=== PATIENT | female | born 1980 | race Caucasian/White ===

== ENCOUNTER 2020-07-04 22:10 | Inpatient (IN) | payer BC ==
[~2020-07-04] VITALS: Ht 157.5 cm; Wt 69.0 kg
[2020-07-04 23:16] LABS: BASOPHILS # (AUTO) 0.01 x10^3/uL (0-0.1); BASOPHILS % (AUTO) 0 % (0-1); EOSINOPHILS # (AUTO) 0.03 x10^3/uL (0-0.4); EOSINOPHILS % (AUTO) 0 % (1-7); LYMPHOCYTES # (AUTO) 1.14 x10^3/uL (1-3.4); LYMPHOCYTES % (AUTO) 9 % (22-44); MD NO; MEAN CORPUSCULAR HEMOGLOBIN 29.6 pg (27.0-34.8); MEAN CORPUSCULAR HGB CONC 32.9 g/dL (32.4-35.8); MEAN PLATELET VOLUME 8.2 fL (7.4-10.4); MONOCYTES # (AUTO) 0.21 x10^3/uL (0.2-0.8); MONOCYTES % (AUTO) 2 % (2-9); NEUTROPHILS # (AUTO) 11.57 x10^3/uL (1.8-6.8); NEUTROPHILS % (AUTO) 89 % (42-75); PLATELET COUNT 210 x10^3/uL (130-400); RED BLOOD COUNT 4.31 x10^6/uL (3.82-5.3); RED CELL DISTRIBUTION WIDTH 13.1 % (9.6-15.2)
[2020-07-04 23:52] LABS: ALANINE AMINOTRANSFERASE 19 U/L (12-78); ALBUMIN 3.1 g/dL (3.4-5.0); ANION GAP 9 mmol/L (5-15); CALCIUM 8.6 mg/dL (8.5-10.1); CHLORIDE 112 mmol/L (98-107); CREATININE 0.71 mg/dL (0.55-1.02)
[2020-07-05 00:03] LABS: ALKALINE PHOSPHATASE 72 U/L (45-117); BILIRUBIN,TOTAL 0.2 mg/dL (0.2-1.0)
[2020-07-05] MEDS ORDERED: INSULIN LISPRO 100 UNIT/ML, 3ML VIAL SQ ONE (02:30)
[2020-07-05] MEDS: LEVOTHYROXINE 50 MCG TABLET PO SCH (03:16)
[2020-07-05] MEDS: INSULIN LISPRO 100 UNITS/ML, PEN SQ-INSULIN SCH ×3 (07:30→09:38)
[2020-07-05] MEDS ORDERED: MAGNESIUM SULFATE PMX 4GM/100M 100 ML ONE (07:56)
[2020-07-05] MEDS ORDERED: MAGNESIUM SULF. PMX 20GM/500ML 500 ML IV ONE ×2 (07:56→19:05)
[2020-07-05] MEDS ORDERED: MAGNESIUM SULFATE PMX 2GM/50ML 50 ML ONE (07:57)
[2020-07-05] MEDS ORDERED: VANCOMYCIN 1,400 MG in SODIUM CHLORIDE 0.9% 250 ML IV SCH ×2 (08:00→20:00)
[2020-07-05] MEDS: INSULIN NPH HUMAN 100 UNIT/ML, 3ML VIAL SQ-INSULIN SCH (08:09)
[2020-07-05] MEDS: LACTATED RINGERS 1,000 ML IV SCH (08:23)
[2020-07-05] MEDS ORDERED: MAGNESIUM SULFATE PMX 4GM/100M 100 ML IVPB ONE (08:30)
[2020-07-05] MEDS ORDERED: INSULIN LISPRO 100 UNIT/ML, 3ML VIAL SQ-INSULIN SCH (08:30)
[2020-07-05] MEDS ORDERED: MAGNESIUM SULFATE PMX 2GM/50ML 50 ML IVPB ONE (08:30)
[2020-07-05] MEDS ORDERED: PRENATAL VIT/IRON/FA 1 EACH TABLET PO SCH (09:00)
[2020-07-05] MEDS: MAGNESIUM SULF. PMX 20GM/500ML 500 ML IV SCH ×2 (09:01→19:07)
[2020-07-05] MEDS ORDERED: ACYCLOVIR 400 MG TABLET ONE ×3 (09:41→22:11)
[2020-07-05] MEDS: ACYCLOVIR 400 MG TABLET PO SCH ×3 (09:42→22:12)
[2020-07-05] MEDS: LACTOBACILLUS 1GM/ PACKET PO SCH ×3 (09:42→21:00)
[2020-07-05] MEDS ORDERED: INSULIN LISPRO 100 UNITS/ML, PEN SQ-INSULIN ONE (13:00)
[2020-07-05] MEDS ORDERED: LEVO50TA PO (17:00)
[2020-07-05] MEDS ORDERED: PREN1TAB28 PO (17:00)
[2020-07-05] MEDS ORDERED: INSULIN LISPRO 100 UNITS/ML, PEN SQ-INSULIN SCH (18:00)
[2020-07-05] MEDS: VANCOMYCIN 1,400 MG in SODIUM CHLORIDE 0.9% 250 ML IV SCH (19:35)
[2020-07-05] MEDS ORDERED: BETAMETHASONE 6 MG/ML, 5ML IM ONE (19:48)
[2020-07-05] MEDS ORDERED: BETAMETHASONE 6 MG/ML, 5ML IM SCH (20:00)
[2020-07-05] MEDS ORDERED: INSULIN NPH HUMAN 100 UNIT/ML, 3ML VIAL SQ-INSULIN ONE (21:00)
[2020-07-05] MEDS ORDERED: ACETAMINOPHEN 325 MG TABLET ONE (21:09)
[2020-07-05] MEDS ORDERED: DOCUSATE 100 MG CAPSULE ONE (22:13)
[2020-07-05] MEDS: DOCUSATE 100 MG CAPSULE PO PRN (22:14)
[2020-07-06] MEDS: LEVOTHYROXINE 50 MCG TABLET PO SCH (02:06)
[2020-07-06] MEDS ORDERED: MAGNESIUM SULF. PMX 20GM/500ML 500 ML IV ONE (04:26)
[2020-07-06] MEDS: MAGNESIUM SULF. PMX 20GM/500ML 500 ML IV SCH (04:31)
[2020-07-06] MEDS ORDERED: INSULIN NPH HUMAN 100 UNIT/ML, 3ML VIAL SQ-INSULIN ONE ×2 (07:30→16:30)
[2020-07-06] MEDS: INSULIN LISPRO 100 UNITS/ML, PEN SQ-INSULIN SCH ×3 (07:30→09:17)
[2020-07-06] MEDS ORDERED: INSULIN LISPRO 100 UNITS/ML, PEN SQ-INSULIN SCH (07:30)
[2020-07-06] MEDS: INSULIN NPH HUMAN 100 UNIT/ML, 3ML VIAL SQ-INSULIN SCH (07:30)
[2020-07-06] MEDS: LACTATED RINGERS 1,000 ML IV SCH ×2 (07:57→16:30)
[2020-07-06] MEDS: LACTOBACILLUS 1GM/ PACKET PO SCH ×3 (07:57→21:02)
[2020-07-06] MEDS: VANCOMYCIN 1,400 MG in SODIUM CHLORIDE 0.9% 250 ML IV SCH ×2 (08:07→19:56)
[2020-07-06] MEDS ORDERED: PRENATAL VIT/IRON/FA 1 EACH TABLET HOMEMEDPO SCH (09:00)
[2020-07-06] MEDS ORDERED: ACYCLOVIR 400 MG TABLET ONE ×3 (09:11→20:52)
[2020-07-06] MEDS: ACYCLOVIR 400 MG TABLET PO SCH ×3 (09:15→21:02)
[2020-07-06] MEDS: PRENATAL VIT/IRON/FA 1 EACH TABLET HOMEMEDPO SCH ×2 (09:30→21:00)
[2020-07-06] MEDS ORDERED: DOCUSATE 100 MG CAPSULE ONE (11:46)
[2020-07-06] MEDS: DOCUSATE 100 MG CAPSULE PO PRN ×2 (11:49→21:02)
[2020-07-06] MEDS ORDERED: INSULIN LISPRO 100 UNITS/ML, PEN SQ-INSULIN ONE (16:30)
[2020-07-06 19:50] VITALS: BP 101/55
[2020-07-07] VITALS (7 sets, daily range): BP systolic 104–108; BP diastolic 54–60
[2020-07-07] MEDS: LEVOTHYROXINE 50 MCG TABLET PO SCH (02:34)
[2020-07-07] MEDS: INSULIN NPH HUMAN 100 UNIT/ML, 3ML VIAL SQ-INSULIN SCH (07:30)
[2020-07-07] MEDS ORDERED: DOCUSATE 100 MG CAPSULE ONE (08:30)
[2020-07-07] MEDS ORDERED: ACYCLOVIR 400 MG TABLET ONE ×2 (08:31→21:09)
[2020-07-07] MEDS: LACTOBACILLUS 1GM/ PACKET PO SCH ×3 (08:38→21:12)
[2020-07-07] MEDS: ACYCLOVIR 400 MG TABLET PO SCH ×3 (08:38→21:12)
[2020-07-07] MEDS: DOCUSATE 100 MG CAPSULE PO PRN (08:39)
[2020-07-07] MEDS: INSULIN LISPRO 100 UNITS/ML, PEN SQ-INSULIN SCH ×3 (08:44→16:00)
[2020-07-07] MEDS: PRENATAL VIT/IRON/FA 1 EACH TABLET HOMEMEDPO SCH ×2 (08:53→21:00)
[2020-07-07] MEDS: LACTATED RINGERS 1,000 ML IV SCH (12:30)
[2020-07-08 02:24] VITALS: BP 99/52
[2020-07-08] MEDS: LEVOTHYROXINE 50 MCG TABLET PO SCH (02:39)
[2020-07-08 07:00] VITALS: BP 120/62
[2020-07-08] MEDS: INSULIN LISPRO 100 UNITS/ML, PEN SQ-INSULIN SCH ×3 (07:00→16:00)
[2020-07-08] MEDS: INSULIN NPH HUMAN 100 UNIT/ML, 3ML VIAL SQ-INSULIN SCH (07:30)
[2020-07-08] MEDS ORDERED: ACYCLOVIR 400 MG TABLET ONE ×2 (07:55→20:32)
[2020-07-08] MEDS ORDERED: DOCUSATE 100 MG CAPSULE ONE (07:56)
[2020-07-08] MEDS: LACTOBACILLUS 1GM/ PACKET PO SCH ×3 (08:00→21:11)
[2020-07-08] MEDS: ACYCLOVIR 400 MG TABLET PO SCH ×3 (08:00→21:11)
[2020-07-08] MEDS: DOCUSATE 100 MG CAPSULE PO PRN (08:00)
[2020-07-08] MEDS: PRENATAL VIT/IRON/FA 1 EACH TABLET HOMEMEDPO SCH (09:00)
[2020-07-08 20:15] VITALS: BP 113/58
[2020-07-09] MEDS: LEVOTHYROXINE 50 MCG TABLET PO SCH (04:20)
[2020-07-09 06:43] LABS: BASOPHILS # (AUTO) 0.04 x10^3/uL (0-0.1); BASOPHILS % (AUTO) 0 % (0-1); EOSINOPHILS # (AUTO) 0.28 x10^3/uL (0-0.4); EOSINOPHILS % (AUTO) 2 % (1-7); LYMPHOCYTES # (AUTO) 2.16 x10^3/uL (1-3.4); LYMPHOCYTES % (AUTO) 16 % (22-44); MD NO; MEAN CORPUSCULAR HEMOGLOBIN 29.8 pg (27.0-34.8); MEAN CORPUSCULAR HGB CONC 33.1 g/dL (32.4-35.8); MEAN CORPUSCULAR VOLUME 90.1 fL (80-100); MONOCYTES # (AUTO) 1.04 x10^3/uL (0.2-0.8); MONOCYTES % (AUTO) 8 % (2-9); NEUTROPHILS % (AUTO) 74 % (42-75); PLATELET COUNT 254 x10^3/uL (130-400); RED CELL DISTRIBUTION WIDTH 13.5 % (9.6-15.2)
[2020-07-09] MEDS ORDERED: ACYCLOVIR 400 MG TABLET ONE ×2 (08:28→16:11)
[2020-07-09] MEDS ORDERED: PRENATAL VIT/IRON/FA 1 EACH TABLET ONE (08:28)
[2020-07-09] MEDS ORDERED: LACTOBACILLUS 1GM/ PACKET ONE ×2 (08:29→16:11)
[2020-07-09] MEDS ORDERED: DOCUSATE 100 MG CAPSULE ONE (08:29)
[2020-07-09] MEDS: DOCUSATE 100 MG CAPSULE PO PRN (09:09)
[2020-07-09] MEDS: LACTOBACILLUS 1GM/ PACKET PO SCH ×3 (09:09→21:03)
[2020-07-09] MEDS: ACYCLOVIR 400 MG TABLET PO SCH ×3 (09:09→21:03)
[2020-07-09] MEDS: PRENATAL VIT/IRON/FA 1 EACH TABLET HOMEMEDPO SCH ×2 (09:10→21:00)
[2020-07-09 09:19] VITALS: BP 124/63
[2020-07-09] MEDS ORDERED: ACETAMINOPHEN 325 MG TABLET ONE (09:57)
[2020-07-09] MEDS: ACETAMINOPHEN 325 MG TABLET PO PRN (10:01)
[2020-07-09] MEDS ORDERED: CALCIUM CARBONATE 500 MG TAB.CHEW PO PRN (15:00)
[2020-07-09] MEDS ORDERED: OMEPRAZOLE 20 MG CAPSULE.DR PO SCH (16:00)
[2020-07-09 19:42] VITALS: BP 106/60
[2020-07-10] MEDS: LEVOTHYROXINE 50 MCG TABLET PO SCH (01:37)
[2020-07-10] MEDS ORDERED: LACTOBACILLUS 1GM/ PACKET ONE (07:38)
[2020-07-10] MEDS ORDERED: DOCUSATE 100 MG CAPSULE ONE (07:38)
[2020-07-10] MEDS: PRENATAL VIT/IRON/FA 1 EACH TABLET HOMEMEDPO SCH ×3 (07:41→21:00)
[2020-07-10] MEDS: LACTOBACILLUS 1GM/ PACKET PO SCH ×3 (07:41→20:53)
[2020-07-10] MEDS: DOCUSATE 100 MG CAPSULE PO PRN (07:42)
[2020-07-10] MEDS ORDERED: INSULIN NPH HUMAN 100 UNIT/ML, 3ML VIAL SQ-INSULIN PRN (08:00)
[2020-07-10] MEDS ORDERED: INSULIN LISPRO 100 UNITS/ML, PEN SQ-INSULIN PRN (08:00)
[2020-07-10] MEDS ORDERED: ACYCLOVIR 400 MG TABLET ONE (08:32)
[2020-07-10] MEDS: ACYCLOVIR 400 MG TABLET PO SCH ×3 (08:36→20:54)
[2020-07-10 19:26] VITALS: BP 112/64
[2020-07-11] MEDS: LEVOTHYROXINE 50 MCG TABLET PO SCH (01:53)
[2020-07-11] MEDS ORDERED: LACTOBACILLUS 1GM/ PACKET ONE ×3 (07:17→20:03)
[2020-07-11] MEDS: LACTOBACILLUS 1GM/ PACKET PO SCH ×3 (07:29→20:06)
[2020-07-11] MEDS: PRENATAL VIT/IRON/FA 1 EACH TABLET HOMEMEDPO SCH ×2 (09:00→21:00)
[2020-07-11] MEDS: DOCUSATE 100 MG CAPSULE PO PRN (09:00)
[2020-07-11] MEDS ORDERED: INSULIN NPH HUMAN 100 UNIT/ML, 3ML VIAL SQ-INSULIN ONE ×2 (09:30→21:00)
[2020-07-11] MEDS ORDERED: ACYCLOVIR 400 MG TABLET ONE (19:46)
[2020-07-11] MEDS: ACYCLOVIR 400 MG TABLET PO SCH ×2 (19:51→21:00)
[2020-07-12] MEDS: LEVOTHYROXINE 50 MCG TABLET PO SCH (01:38)
[2020-07-12] MEDS ORDERED: DOCUSATE 100 MG CAPSULE ONE ×2 (07:41)
[2020-07-12] MEDS ORDERED: ACYCLOVIR 400 MG TABLET ONE ×3 (07:41→20:49)
[2020-07-12] MEDS ORDERED: LACTOBACILLUS 1GM/ PACKET ONE ×3 (07:41→20:49)
[2020-07-12] MEDS: ACYCLOVIR 400 MG TABLET PO SCH ×3 (09:23→22:00)
[2020-07-12] MEDS: DOCUSATE 100 MG CAPSULE PO PRN (09:23)
[2020-07-12] MEDS: LACTOBACILLUS 1GM/ PACKET PO SCH ×3 (09:23→22:00)
[2020-07-12] MEDS: PRENATAL VIT/IRON/FA 1 EACH TABLET HOMEMEDPO SCH ×2 (20:30→21:00)
[2020-07-12] MEDS ORDERED: INSULIN NPH HUMAN 100 UNIT/ML, 3ML VIAL SQ-INSULIN ONE (22:00)
[2020-07-13] MEDS: LEVOTHYROXINE 50 MCG TABLET PO SCH (02:16)
[2020-07-13] MEDS ORDERED: ACYCLOVIR 400 MG TABLET ONE ×2 (08:56→15:42)
[2020-07-13] MEDS ORDERED: LACTOBACILLUS 1GM/ PACKET ONE ×2 (08:56→13:03)
[2020-07-13] MEDS: ACYCLOVIR 400 MG TABLET PO SCH ×3 (08:58→20:30)
[2020-07-13] MEDS: LACTOBACILLUS 1GM/ PACKET PO SCH ×3 (08:58→20:30)
[2020-07-13] MEDS: PRENATAL VIT/IRON/FA 1 EACH TABLET HOMEMEDPO SCH ×2 (09:00→21:00)
[2020-07-13] MEDS ORDERED: ACETAMINOPHEN 325 MG TABLET ONE (13:07)
[2020-07-13] MEDS: ACETAMINOPHEN 325 MG TABLET PO PRN (13:09)
[2020-07-13] MEDS: DOCUSATE 100 MG CAPSULE PO PRN (20:30)
[2020-07-13] MEDS ORDERED: INSULIN NPH HUMAN 100 UNIT/ML, 3ML VIAL SQ-INSULIN ONE (21:00)
[2020-07-14] MEDS: LEVOTHYROXINE 50 MCG TABLET PO SCH (01:32)
[2020-07-14 07:00] VITALS: BP 107/65
[2020-07-14] MEDS: PRENATAL VIT/IRON/FA 1 EACH TABLET HOMEMEDPO SCH ×2 (09:00→21:00)
[2020-07-14] MEDS ORDERED: ACETAMINOPHEN 325 MG TABLET ONE (13:19)
[2020-07-14] MEDS ORDERED: DOCUSATE 100 MG CAPSULE ONE ×2 (13:20→20:56)
[2020-07-14] MEDS ORDERED: LACTOBACILLUS 1GM/ PACKET ONE ×3 (13:20→20:56)
[2020-07-14] MEDS ORDERED: ACYCLOVIR 400 MG TABLET ONE ×3 (13:20→20:56)
[2020-07-14] MEDS: ACYCLOVIR 400 MG TABLET PO SCH ×4 (13:22→22:16)
[2020-07-14] MEDS: DOCUSATE 100 MG CAPSULE PO PRN ×2 (13:22→22:16)
[2020-07-14] MEDS: ACETAMINOPHEN 325 MG TABLET PO PRN (13:22)
[2020-07-14 13:30] VITALS: BP 123/70
[2020-07-14] MEDS: LACTOBACILLUS 1GM/ PACKET PO SCH ×3 (16:00→21:00)
[2020-07-14] MEDS ORDERED: PRENATAL VIT/IRON/FA 1 EACH TABLET ONE (20:55)
[2020-07-14] MEDS: INSULIN NPH HUMAN 100 UNIT/ML, 3ML VIAL SQ-INSULIN PRN (22:19)
[2020-07-15] MEDS: LEVOTHYROXINE 50 MCG TABLET PO SCH (01:02)
[2020-07-15] MEDS ORDERED: ACYCLOVIR 400 MG TABLET ONE ×3 (07:24→20:54)
[2020-07-15] MEDS: ACYCLOVIR 400 MG TABLET PO SCH ×3 (07:32→21:00)
[2020-07-15] MEDS: LACTOBACILLUS 1GM/ PACKET PO SCH ×3 (07:33→20:57)
[2020-07-15] MEDS: PRENATAL VIT/IRON/FA 1 EACH TABLET HOMEMEDPO SCH ×2 (07:33→16:02)
[2020-07-15] MEDS ORDERED: DOCUSATE 100 MG CAPSULE ONE ×2 (11:28→20:53)
[2020-07-15] MEDS ORDERED: ACETAMINOPHEN 325 MG TABLET ONE ×3 (11:28→19:03)
[2020-07-15] MEDS: DOCUSATE 100 MG CAPSULE PO PRN ×2 (11:31→20:57)
[2020-07-15] MEDS: ACETAMINOPHEN 325 MG TABLET PO PRN ×2 (11:33→19:08)
[2020-07-15] MEDS ORDERED: LACTOBACILLUS 1GM/ PACKET ONE ×2 (16:00→20:53)
[2020-07-15] MEDS: INSULIN NPH HUMAN 100 UNIT/ML, 3ML VIAL SQ-INSULIN PRN (22:20)
[2020-07-16] MEDS: LEVOTHYROXINE 50 MCG TABLET PO SCH (01:18)
[2020-07-16] MEDS ORDERED: ACETAMINOPHEN 325 MG TABLET ONE ×2 (01:21→01:26)
[2020-07-16] MEDS: ACETAMINOPHEN 325 MG TABLET PO PRN (01:22)
[2020-07-16 07:40] VITALS: BP 108/61
[2020-07-16] MEDS ORDERED: LACTOBACILLUS 1GM/ PACKET ONE ×3 (12:04→21:04)
[2020-07-16] MEDS ORDERED: ACYCLOVIR 400 MG TABLET ONE ×3 (12:04→21:04)
[2020-07-16] MEDS ORDERED: DOCUSATE 100 MG CAPSULE ONE ×2 (12:04→21:04)
[2020-07-16] MEDS: DOCUSATE 100 MG CAPSULE PO PRN ×3 (12:10→21:34)
[2020-07-16] MEDS: LACTOBACILLUS 1GM/ PACKET PO SCH ×3 (12:10→21:34)
[2020-07-16] MEDS: ACYCLOVIR 400 MG TABLET PO SCH ×3 (12:11→21:34)
[2020-07-16] MEDS: PRENATAL VIT/IRON/FA 1 EACH TABLET HOMEMEDPO SCH ×2 (12:11→21:00)
[2020-07-16 19:55] VITALS: BP 110/64
[2020-07-16] MEDS: INSULIN NPH HUMAN 100 UNIT/ML, 3ML VIAL SQ-INSULIN PRN (22:29)
[2020-07-17] MEDS: LEVOTHYROXINE 50 MCG TABLET PO SCH (03:59)
[2020-07-17] MEDS ORDERED: ACYCLOVIR 400 MG TABLET ONE ×3 (08:37→19:31)
[2020-07-17] MEDS ORDERED: DOCUSATE 100 MG CAPSULE ONE ×2 (08:37→19:31)
[2020-07-17] MEDS ORDERED: LACTOBACILLUS 1GM/ PACKET ONE ×3 (08:37→19:31)
[2020-07-17] MEDS: PRENATAL VIT/IRON/FA 1 EACH TABLET HOMEMEDPO SCH ×2 (09:00→21:00)
[2020-07-17] MEDS: DOCUSATE 100 MG CAPSULE PO PRN ×2 (09:04→21:10)
[2020-07-17] MEDS: LACTOBACILLUS 1GM/ PACKET PO SCH ×3 (09:04→21:10)
[2020-07-17] MEDS: ACYCLOVIR 400 MG TABLET PO SCH ×3 (09:05→21:10)
[2020-07-17 10:47] VITALS: BP 119/68
[2020-07-17] MEDS: INSULIN LISPRO 100 UNITS/ML, PEN SQ-INSULIN SCH (17:46)
[2020-07-17 19:43] VITALS: BP 105/58
[2020-07-17] MEDS ORDERED: ACETAMINOPHEN 325 MG TABLET ONE (21:09)
[2020-07-17] MEDS: ACETAMINOPHEN 325 MG TABLET PO PRN (21:11)
[2020-07-17] MEDS: INSULIN NPH HUMAN 100 UNIT/ML, 3ML VIAL SQ-INSULIN PRN (21:58)
[2020-07-18] MEDS: LEVOTHYROXINE 50 MCG TABLET PO SCH (01:18)
[2020-07-18 08:00] VITALS: BP 108/65
[2020-07-18] MEDS ORDERED: ACYCLOVIR 400 MG TABLET ONE ×3 (08:05→21:12)
[2020-07-18] MEDS ORDERED: DOCUSATE 100 MG CAPSULE ONE ×2 (08:05→21:11)
[2020-07-18] MEDS ORDERED: LACTOBACILLUS 1GM/ PACKET ONE ×3 (08:05→21:12)
[2020-07-18] MEDS: LACTOBACILLUS 1GM/ PACKET PO SCH ×3 (08:10→21:14)
[2020-07-18] MEDS: DOCUSATE 100 MG CAPSULE PO PRN ×2 (08:10→21:14)
[2020-07-18] MEDS: ACYCLOVIR 400 MG TABLET PO SCH ×3 (08:10→21:14)
[2020-07-18] MEDS: PRENATAL VIT/IRON/FA 1 EACH TABLET HOMEMEDPO SCH ×2 (09:00→21:00)
[2020-07-18] MEDS: INSULIN LISPRO 100 UNITS/ML, PEN SQ-INSULIN SCH ×2 (18:00→18:13)
[2020-07-18 19:51] VITALS: BP 108/58
[2020-07-18] MEDS: INSULIN NPH HUMAN 100 UNIT/ML, 3ML VIAL SQ-INSULIN PRN (22:12)
[2020-07-19] MEDS: LEVOTHYROXINE 50 MCG TABLET PO SCH (01:54)
[2020-07-19] MEDS: PRENATAL VIT/IRON/FA 1 EACH TABLET HOMEMEDPO SCH ×2 (09:00→21:00)
[2020-07-19] MEDS ORDERED: DOCUSATE 100 MG CAPSULE ONE ×2 (09:18→20:39)
[2020-07-19] MEDS ORDERED: LACTOBACILLUS 1GM/ PACKET ONE ×3 (09:18→20:39)
[2020-07-19] MEDS ORDERED: ACYCLOVIR 400 MG TABLET ONE ×3 (09:18→20:39)
[2020-07-19] MEDS: DOCUSATE 100 MG CAPSULE PO PRN ×2 (09:23→20:43)
[2020-07-19] MEDS: ACYCLOVIR 400 MG TABLET PO SCH ×3 (09:24→20:43)
[2020-07-19] MEDS: LACTOBACILLUS 1GM/ PACKET PO SCH ×3 (09:24→20:43)
[2020-07-19] MEDS: INSULIN LISPRO 100 UNITS/ML, PEN SQ-INSULIN SCH (17:57)
[2020-07-19] MEDS: INSULIN NPH HUMAN 100 UNIT/ML, 3ML VIAL SQ-INSULIN PRN (22:02)
[2020-07-20] MEDS: LEVOTHYROXINE 50 MCG TABLET PO SCH (01:45)
[2020-07-20] MEDS ORDERED: DOCUSATE 100 MG CAPSULE ONE ×2 (08:53→20:25)
[2020-07-20] MEDS ORDERED: LACTOBACILLUS 1GM/ PACKET ONE ×3 (08:53→20:26)
[2020-07-20] MEDS ORDERED: ACYCLOVIR 400 MG TABLET ONE ×3 (08:53→20:26)
[2020-07-20] MEDS: LACTOBACILLUS 1GM/ PACKET PO SCH ×3 (08:56→20:32)
[2020-07-20] MEDS: ACYCLOVIR 400 MG TABLET PO SCH ×3 (08:57→20:32)
[2020-07-20] MEDS: DOCUSATE 100 MG CAPSULE PO PRN ×2 (08:57→20:32)
[2020-07-20] MEDS: PRENATAL VIT/IRON/FA 1 EACH TABLET HOMEMEDPO SCH ×2 (08:57→21:00)
[2020-07-20 09:00] VITALS: BP 103/57
[2020-07-20] MEDS: INSULIN LISPRO 100 UNITS/ML, PEN SQ-INSULIN SCH (18:00)
[2020-07-20 20:45] VITALS: BP 102/58
[2020-07-20] MEDS: INSULIN NPH HUMAN 100 UNIT/ML, 3ML VIAL SQ-INSULIN PRN (22:17)
[2020-07-21] MEDS: LEVOTHYROXINE 50 MCG TABLET PO SCH (02:28)
[2020-07-21 02:29] VITALS: BP 90/51
[2020-07-21] MEDS ORDERED: ACYCLOVIR 400 MG TABLET ONE ×3 (08:13→21:09)
[2020-07-21] MEDS ORDERED: LACTOBACILLUS 1GM/ PACKET ONE ×3 (08:14→21:08)
[2020-07-21] MEDS ORDERED: DOCUSATE 100 MG CAPSULE ONE ×2 (08:14→21:08)
[2020-07-21] MEDS: DOCUSATE 100 MG CAPSULE PO PRN ×2 (08:19→21:24)
[2020-07-21] MEDS: LACTOBACILLUS 1GM/ PACKET PO SCH ×3 (08:19→21:24)
[2020-07-21] MEDS: ACYCLOVIR 400 MG TABLET PO SCH ×3 (08:19→21:24)
[2020-07-21] MEDS: PRENATAL VIT/IRON/FA 1 EACH TABLET HOMEMEDPO SCH ×2 (08:26→21:00)
[2020-07-21 08:35] VITALS: BP 105/60
[2020-07-21] MEDS: INSULIN LISPRO 100 UNITS/ML, PEN SQ-INSULIN SCH (16:53)
[2020-07-21] MEDS ORDERED: ACETAMINOPHEN 325 MG TABLET ONE (18:55)
[2020-07-21] MEDS: ACETAMINOPHEN 325 MG TABLET PO PRN (18:59)
[2020-07-21 19:14] LABS: BASOPHILS # (AUTO) 0.08 x10^3/uL (0-0.1); BASOPHILS % (AUTO) 1 % (0-1); EOSINOPHILS # (AUTO) 0.15 x10^3/uL (0-0.4); EOSINOPHILS % (AUTO) 2 % (1-7); LYMPHOCYTES # (AUTO) 1.76 x10^3/uL (1-3.4); LYMPHOCYTES % (AUTO) 17 % (22-44); MD NO; MEAN CORPUSCULAR HEMOGLOBIN 30.3 pg (27.0-34.8); MEAN CORPUSCULAR HGB CONC 33.5 g/dL (32.4-35.8); MEAN CORPUSCULAR VOLUME 90.3 fL (80-100); MEAN PLATELET VOLUME 7.7 fL (7.4-10.4); MONOCYTES # (AUTO) 0.68 x10^3/uL (0.2-0.8); MONOCYTES % (AUTO) 7 % (2-9); NEUTROPHILS # (AUTO) 7.71 x10^3/uL (1.8-6.8); NEUTROPHILS % (AUTO) 74 % (42-75); PLATELET COUNT 212 x10^3/uL (130-400); RED BLOOD COUNT 4.29 x10^6/uL (3.82-5.3); RED CELL DISTRIBUTION WIDTH 13.6 % (9.6-15.2)
[2020-07-21 19:25] VITALS: BP 112/62
[2020-07-21 20:18] LABS: MICROSCOPIC AUTO
[2020-07-21] MEDS: INSULIN NPH HUMAN 100 UNIT/ML, 3ML VIAL SQ-INSULIN PRN (22:27)
[2020-07-21] MEDS ORDERED: MAGNESIUM SULF. PMX 20GM/500ML 500 ML IV SCH (22:39)
[2020-07-21] MEDS ORDERED: MAGNESIUM SULF. PMX 20GM/500ML 500 ML IV ONE (22:45)
[2020-07-21] MEDS ORDERED: MAGNESIUM SULFATE PMX 2GM/50ML 50 ML IVPB ONE (23:00)
[2020-07-21] MEDS ORDERED: MAGNESIUM SULFATE PMX 4GM/100M 100 ML IVPB ONE (23:00)
[2020-07-21] MEDS ORDERED: VANCOMYCIN PMX 1GM/200ML 200 ML IVPB SCH (23:00)
[2020-07-22] MEDS ORDERED: OXYTOCIN 30U/ 0.9% NaCL 500ML 500 ML ONE (00:17)
[2020-07-22] MEDS ORDERED: LIDOCAINE 1%, 20ML ONE (00:26)
[2020-07-22] MEDS ORDERED: MISOPROSTOL 200 MCG TABLET ONE (00:27)
[2020-07-22] MEDS ORDERED: FENTANYL PF 100 MCG/2ML ONE (00:49)
[2020-07-22] MEDS ORDERED: OXYTOCIN 30U/ 0.9% NaCL 500ML 500 ML IV SCH (01:26)
[2020-07-22] MEDS ORDERED: SIMETHICONE 80 MG CHEW TAB PO PRN (01:30)
[2020-07-22] MEDS ORDERED: ACETAMINOPHEN 325 MG TABLET PO PRN (01:30)
[2020-07-22] MEDS ORDERED: DOCUSATE 100 MG CAPSULE PO PRN (01:30)
[2020-07-22] MEDS ORDERED: OXYcodone/APAP 5/325MG TABLET PO PRN (01:30)
[2020-07-22] MEDS ORDERED: METHYLERGONOVINE 0.2 MG/ML IM PRN (01:30)
[2020-07-22] MEDS ORDERED: ONDANSETRON 2MG/ML, 2ML IV PRN (01:30)
[2020-07-22] MEDS ORDERED: IBUPROFEN 600 MG TABLET ONE (01:39)
[2020-07-22 03:45] VITALS: BP 136/81
[2020-07-22] MEDS: LEVOTHYROXINE 50 MCG TABLET PO SCH (04:54)
[2020-07-22 07:30] VITALS: BP 108/75
[2020-07-22 07:51] LABS: BASOPHILS # (AUTO) 0.04 x10^3/uL (0-0.1); BASOPHILS % (AUTO) 0 % (0-1); EOSINOPHILS # (AUTO) 0.04 x10^3/uL (0-0.4); EOSINOPHILS % (AUTO) 0 % (1-7); LYMPHOCYTES # (AUTO) 1.69 x10^3/uL (1-3.4); LYMPHOCYTES % (AUTO) 14 % (22-44); MD NO; MEAN CORPUSCULAR HEMOGLOBIN 29.5 pg (27.0-34.8); MEAN CORPUSCULAR HGB CONC 32.6 g/dL (32.4-35.8); MEAN CORPUSCULAR VOLUME 90.4 fL (80-100); MEAN PLATELET VOLUME 7.5 fL (7.4-10.4); MONOCYTES # (AUTO) 0.82 x10^3/uL (0.2-0.8); MONOCYTES % (AUTO) 7 % (2-9); NEUTROPHILS # (AUTO) 9.96 x10^3/uL (1.8-6.8); NEUTROPHILS % (AUTO) 79 % (42-75); PLATELET COUNT 217 x10^3/uL (130-400); RED CELL DISTRIBUTION WIDTH 13.1 % (9.6-15.2)
[2020-07-22] MEDS: ACYCLOVIR 400 MG TABLET PO SCH ×3 (09:00→21:00)
[2020-07-22] MEDS: PRENATAL VIT/IRON/FA 1 EACH TABLET HOMEMEDPO SCH ×2 (09:00→21:00)
[2020-07-22] MEDS: IBUPROFEN 600 MG TABLET PO PRN ×3 (09:12→20:15)
[2020-07-22] MEDS: DOCUSATE 100 MG CAPSULE PO PRN ×2 (09:13→20:15)
[2020-07-22] MEDS: LACTOBACILLUS 1GM/ PACKET PO SCH ×3 (09:13→22:22)
[2020-07-22 12:30] VITALS: BP 124/78
[2020-07-22 20:15] VITALS: BP 110/75
[2020-07-23] MEDS: LEVOTHYROXINE 50 MCG TABLET PO SCH (04:46)
[2020-07-23 07:55] VITALS: BP 101/61
[2020-07-23] MEDS: IBUPROFEN 600 MG TABLET PO PRN ×2 (08:15→14:34)
[2020-07-23] MEDS: DOCUSATE 100 MG CAPSULE PO PRN (08:15)
[2020-07-23] MEDS: LACTOBACILLUS 1GM/ PACKET PO SCH ×2 (08:15→14:34)
[2020-07-23] MEDS: ACYCLOVIR 400 MG TABLET PO SCH ×2 (08:15→14:34)
[2020-07-23] MEDS: PRENATAL VIT/IRON/FA 1 EACH TABLET HOMEMEDPO SCH ×2 (09:00→21:00)
[2020-07-23 20:00] VITALS: BP 106/66
[2020-07-24] MEDS: LEVOTHYROXINE 50 MCG TABLET PO SCH (02:21)
[2020-07-24] MEDS: IBUPROFEN 600 MG TABLET PO PRN ×2 (02:26→11:56)
[2020-07-24 07:50] VITALS: BP 111/67
[2020-07-24] MEDS ORDERED: IBUP-1222 PO (08:08)
[2020-07-24] MEDS: PRENATAL VIT/IRON/FA 1 EACH TABLET HOMEMEDPO SCH (09:00)
== END 2020-07-24 15:23 | disposition home or self-care (01) | DRG 805 ==
LOC: LDIP 22:10 → EDIP 22:10 → UNDOADMIN 22:10 → 2NW 07-22 03:05
PROVIDERS: ADMIT Obstetrics & Gynecology Maternal & Fetal Medicine; ATTEND Obstetrics & Gynecology Maternal & Fetal Medicine
PROC: 0KQM0ZZ Repair Perineum Muscle, Open Approach (ICD-10-PCS; principal; 2020-07-22)
PROC: 10E0XZZ Delivery of Products of Conception, External Approach (ICD-10-PCS; 2020-07-22)
DX: O62.3 Precipitate labor (principal); O60.14X0 Preterm labor third trimester with preterm delivery third trimester, not applicable or unspecified; Z37.0 Single live birth; O34.219 Maternal care for unspecified type scar from previous cesarean delivery; O70.1 Second degree perineal laceration during delivery; O99.284 Endocrine, nutritional and metabolic diseases complicating childbirth; O99.824 Streptococcus B carrier state complicating childbirth; Z3A.31 31 weeks gestation of pregnancy; O24.424 Gestational diabetes mellitus in childbirth, insulin controlled; E03.9 Hypothyroidism, unspecified; E16.2 Hypoglycemia, unspecified; Z88.1 Allergy status to other antibiotic agents; Z20.828 Contact with and (suspected) exposure to other viral communicable diseases
CPT/HCPCS: 36415; 76805; 80053; 81001; 82803; 82962; 83036; 83735; 84443; 85025; 86592; 86850; 86900; 87086; 87147; 87635; 88305; G0378; J0702; J1815; J3370; J1817; J2590; J3475; J7050; J7120

== ENCOUNTER 2020-07-31 05:46 | Observation (INO) | payer BC ==
[~2020-07-31] VITALS: Ht 157.5 cm; Wt 63.4 kg
[~2020-07-31 05:46] MED LIST: IBUP-1222 PO; LEVO50TA PO; PREN1TAB28 PO
--- NOTE | 2020-07-31 05:59 | NUR ---
TASK RN: PT REPORTS ABDOMINAL PAIN FOR 18 HOURS, GRADUALLY STARTED. PT RESTING ON GURNEY, PT LAST BM YESTERDAY AFTERNOON, DENIES FLATUS. PT PLACED ON SPO2/BP MONITORING. GIVEN WARM BLANKETS FOR COMFORT. JACKIE.
[2020-07-31] MEDS ORDERED: SODIUM CHLORIDE FLUSH 10ML SYR IVF ONE (06:00)
[2020-07-31] MEDS ORDERED: SODIUM CHLORIDE 0.9% 1,000ML IVBOLUS ONE (06:00)
[2020-07-31 06:42] LABS: BASOPHILS # (AUTO) 0.05 x10^3/uL (0-0.1); BASOPHILS % (AUTO) 0 % (0-1); EOSINOPHILS # (AUTO) 0.16 x10^3/uL (0-0.4); EOSINOPHILS % (AUTO) 1 % (1-7); LYMPHOCYTES % (AUTO) 17 % (22-44); MD NO; MEAN CORPUSCULAR HEMOGLOBIN 29.7 pg (27.0-34.8); MEAN CORPUSCULAR HGB CONC 32.8 g/dL (32.4-35.8); MEAN CORPUSCULAR VOLUME 90.5 fL (80-100); MEAN PLATELET VOLUME 7.1 fL (7.4-10.4); MONOCYTES # (AUTO) 0.71 x10^3/uL (0.2-0.8); MONOCYTES % (AUTO) 6 % (2-9); NEUTROPHILS # (AUTO) 9.59 x10^3/uL (1.8-6.8); NEUTROPHILS % (AUTO) 76 % (42-75); PLATELET COUNT 321 x10^3/uL (130-400); RED BLOOD COUNT 5.03 x10^6/uL (3.82-5.3); RED CELL DISTRIBUTION WIDTH 13.4 % (9.6-15.2)
[2020-07-31 06:48] LABS: ALANINE AMINOTRANSFERASE 40 U/L (12-78); ALBUMIN 3.7 g/dL (3.4-5.0); ANION GAP 8 mmol/L (5-15); CHLORIDE 109 mmol/L (98-107); CREATININE 0.84 mg/dL (0.55-1.02)
[2020-07-31 06:52] LABS: ALKALINE PHOSPHATASE 81 U/L (45-117); BILIRUBIN,TOTAL 0.5 mg/dL (0.2-1.0); TOTAL PROTEIN 7.7 g/dL (6.4-8.2)
[2020-07-31] MEDS ORDERED: OMNIPAQUE 350 MG/ML, 100ML BOTTLE ONE (07:29)
[2020-07-31 08:00] LABS: MICROSCOPIC AUTO
[2020-07-31] MEDS ORDERED: METHYLERGONOVINE 0.2 MG/ML IM PRN (09:00)
--- NOTE | 2020-07-31 09:21 | NUR ---
report received from NENA Ernandez, this RN assuming care. pt is resting on gurney, resps even and unlabored. pt has recently expressed breastmilk with hospital pump. friends at bedside x 2. pt updated with POC, pt declines need for pain medication at this time. pt educated regarding ordered med, methergine. per pharmacist Arjun, pt is to express and discard breastmilk for 24 hrs after receiving this medication. Pt notified, pt agrees to taking this medication. methergine requested from pharmacy. bp and spo2 monitors in place. call light in reach. pelvic exam setup at bedside. awaiting pelvic exam by MD and med from pharmacy.
[2020-07-31 09:30] LABS: HCT (SEDRATE) 45.5 % (34.6-47.8)
--- NOTE | 2020-07-31 10:42 | NUR ---
PT MEDICATED PER EMAR WITH METHERGINE, TO LEFT GLUTE PER PT REQUEST. PT TOLERATED WELL. PT A&O, RESPS EVEN AND UNLABORED, REQUESTS TYLENOL FOR DIFFIUSE ABD PAIN. FRIENDS AT BEDSIDE.
[2020-07-31] MEDS ORDERED: 5-HY50CA PO (10:51)
[2020-07-31] MEDS ORDERED: DOCU-131 PO (10:52)
[2020-07-31] MEDS ORDERED: COLLAGEN PO (10:52)
[2020-07-31] MEDS ORDERED: OMEGA 3 PO (10:52)
[2020-07-31] MEDS ORDERED: PROBIOTIC PO (10:52)
[2020-07-31] MEDS ORDERED: ACETAMINOPHEN 500 MG TABLET PO ONE (11:30)
[2020-07-31] MEDS ORDERED: ACETAMINOPHEN 500 MG TABLET ONE (11:42)
--- NOTE | 2020-07-31 11:46 | NUR ---
PT MEDICATED PER EMAR WITH TYLENOL, PROVIDED WITH OATMEAL AND WATER WITH MD MARADIAGA. PT TOLERATED WELL WITH NO N/V. PT IS A&O, RESPS EVEN AND UNLABORED, NADN. AWAITING MEDICAL BED ASSIGNMENT AT THIS TIME. PT UPDATED WITH POC. FRIEND AT BEDSIDE. BREAST PUMP AT BEDSIDE FOR PT TO USE AT [facility].
--- NOTE | 2020-07-31 12:35 | NUR ---
ESTRELLA OLIVAREZ AT BEDSIDE TO ANSWER PT QUESTIONS. MD NOTIFIED PT MEETS SIRS CRITERIA OF WBC 12.6 AND HR >90, PER MD PT IS NOT SUSPECTED TO BE SEPTIC. PT IS A&O, RESPS EVEN AND UNLABORED, NADN AT THIS TIME.
--- NOTE | 2020-07-31 13:11 | NUR ---
ROOM ASSIGNED, RECEIVING RN ALFONZO CALLED TO GIVE REPORT. RECEIVING RN UNAVAILABLE TO TAKE REPORT, TO CALL ED BACK WHEN AVAILABLE.
--- NOTE | 2020-07-31 13:15 | NUR ---
PT SEEN BY ALIE, HOSPITALIST HANG AT BEDSIDE FOR ADMIT ASSESSMENT. PT REPORTS SLIGHT INCREASE IN VAG BLEEDING (RATES SMALL VAG BLEEDING), EDMD OLIVAREZ NOTIFIED. PER MD, THIS IS EXPECTED WITH METHERGINE ADMIN.
[2020-07-31] MEDS ORDERED: D5%-0.45% NACL 1,000 ML IV SCH (13:30)
[2020-07-31] MEDS ORDERED: GLUCAGON 1 MG IM PRN (13:30)
[2020-07-31] MEDS ORDERED: DEXTROSE 4 GM TAB.CHEW PO PRN (13:30)
[2020-07-31] MEDS ORDERED: ONDANSETRON 2MG/ML, 2ML IVPush PRN ×2 (13:30→21:00)
[2020-07-31] MEDS ORDERED: POLYETHYLENE GLYCOL 17 GM PACKET PO PRN (13:30)
[2020-07-31] MEDS ORDERED: DEXTROSE 50%, 50ML SYRINGE IVPush PRN (13:30)
--- NOTE | 2020-07-31 13:35 | NUR ---
REPORT GIVEN TO NENA MEJÍA WHO IS RECEIVING RN. PT AWAITING TRANSPORT TO MED/SURG FLOOR.
--- NOTE | 2020-07-31 13:50 | NUR ---
was paged again @[phone]
--- NOTE | 2020-07-31 13:53 | NUR ---
[facility] HOSPITALIST EXAM, PT IS TENDER TO LEFT LOWER ABD QUAD. RADIOLOGIST ASKED TO RE-READ ABD CT, RADIOLOGIST NOTIFIED MD MAURICIO AND ESTRELLA OLIVAREZ THAT PT HAS APPENDICITIS. MEROPENEM ORDERED BY MD MAURICIO. PER ESTRELLA OLIVAREZ, BLOOD CX NOT INDICATED PRIOR TO ABX ADMIN.
[2020-07-31 14:15] LABS: INTERNATIONAL NORMALIZED RATIO 0.99 (0.93-1.1); PROTHROMBIN TIME 10.2 Seconds (9.6-11.5)
--- NOTE | 2020-07-31 14:19 | NUR ---
MERREM NOT IN ED MD HANG PARKS OK'D PT TO TRANSFER TO FLOOR PRIOR TO MERREM ADMIN.
--- NOTE | 2020-07-31 14:35 | NUR ---
OR CALLED RN, NOTIFIED RN THAT PT IS TENTATIVELY SCHEDULED FOR APPENDECTOMY AT 1900 TONIGHT. PT INSTRUCTED TO REMAIN NPO. FSBS TAKEN, 90. IV MAINTENANCE FLUIDS INITIATED PER EMAR. PT AND (AT BEDSIDE) UPDATED WITH POC FOR SURGERY, MD LINDO TO PERFORM. AUTOMOTIVE PRODUCT SPECIALIST NOTES THAT PT WILL BE CONSENTED BY MD LINDO ONCE HE IS BACK IN HOUSE. PT IS A&O, RESPS EVEN AND UNLABORED. PT CONTINUES TO DECLINE PAIN MEDICATION. PT TRANSPORTED UP TO MED/SURG FLOOR BY RN RISK MANAGEMENT INTERN. HOSPITAL BREAST PUMP TAKEN WITH PT.
[2020-07-31 14:50] VITALS: BP 129/83
[2020-07-31] MEDS: D5%-0.45% NACL 1,000 ML IV SCH (14:51)
[2020-07-31] MEDS: MEROPENEM 1 GM in SODIUM CHLORIDE 0.9% 100 ML IV SCH ×2 (15:43→23:36)
[2020-07-31] MEDS ORDERED: BUPIVACAINE/PF 0.5% ONE (19:27)
[2020-07-31] MEDS ORDERED: EPINEPHRINE 1 MG/ML, 1ML ONE (19:28)
[2020-07-31] MEDS ORDERED: ONDANSETRON 2MG/ML, 2ML ONE (19:43)
[2020-07-31] MEDS ORDERED: PROPOFOL 10 MG/ML, 20ML ONE (19:43)
[2020-07-31] MEDS ORDERED: SUCCINYLCHOLINE 20 MG/ML, 10ML ONE (19:43)
[2020-07-31] MEDS ORDERED: CEFAZOLIN 1,000 MG ONE (19:43)
[2020-07-31] MEDS ORDERED: ROCURONIUM 10 MG/ML,10ML ONE (19:43)
[2020-07-31] MEDS ORDERED: MIDAZOLAM 1 MG/ML, 2ML ONE (19:44)
[2020-07-31] MEDS ORDERED: FENTANYL PF 250 MCG/5ML ONE (19:44)
[2020-07-31] MEDS ORDERED: OXYcodone 5 MG/5 ML ORAL.SOL UDC PO PRN ×2 (20:30→21:00)
[2020-07-31] MEDS ORDERED: MEPERIDINE/PF 25MG/ML,1ML ONE (20:34)
[2020-07-31] MEDS ORDERED: EPINEPHRINE 1 MG/ML, 1ML INFIL ONE (20:49)
[2020-07-31] MEDS ORDERED: BUPIVACAINE/PF 0.5% INFIL ONE (20:49)
[2020-07-31] MEDS ORDERED: PROMETHAZINE 25 MG/ML, 1ML IVPush PRN (21:00)
[2020-07-31] MEDS: SODIUM CHLORIDE FLUSH 10ML SYR IVF SCH (21:00)
[2020-07-31] MEDS ORDERED: HYDROXYTRYPTOPHAN 100 MG PO SCH (21:00)
[2020-07-31] MEDS ORDERED: MEPERIDINE/PF 25MG/0.5ML IVPush PRN (21:00)
[2020-07-31] MEDS ORDERED: HYDROmorphone 1 MG/ML, 1ML INJ IVPush PRN (21:00)
[2020-07-31] MEDS ORDERED: ACETAMINOPHEN 325 MG TABLET PO PRN (21:00)
[2020-07-31] MEDS ORDERED: FENTANYL PF 100 MCG/2ML IV PRN (21:00)
[2020-07-31 21:49] VITALS: BP 118/79
[2020-07-31] MEDS: DOCUSATE 100 MG CAPSULE PO SCH (23:17)
[2020-07-31] MEDS: KETOROLAC 30 MG/1 ML IV PRN (23:17)
[2020-07-31] MEDS: VANCOMYCIN 50 MG/ML ORAL SUSP PO SCH (23:44)
[2020-08-01] MEDS: D5%-0.45% NACL 1,000 ML IV SCH (00:51)
[2020-08-01] MEDS ORDERED: LEVOTHYROXINE 50 MCG TABLET ONE (03:05)
[2020-08-01 03:06] VITALS: BP 113/78
[2020-08-01 05:15] LABS: BASOPHILS # (AUTO) 0.03 x10^3/uL (0-0.1); BASOPHILS % (AUTO) 0 % (0-1); EOSINOPHILS # (AUTO) 0.09 x10^3/uL (0-0.4); EOSINOPHILS % (AUTO) 1 % (1-7); LYMPHOCYTES # (AUTO) 1.63 x10^3/uL (1-3.4); LYMPHOCYTES % (AUTO) 17 % (22-44); MD NO; MEAN CORPUSCULAR HEMOGLOBIN 29.9 pg (27.0-34.8); MEAN CORPUSCULAR HGB CONC 33.1 g/dL (32.4-35.8); MEAN CORPUSCULAR VOLUME 90.4 fL (80-100); MEAN PLATELET VOLUME 7.5 fL (7.4-10.4); MONOCYTES # (AUTO) 0.62 x10^3/uL (0.2-0.8); MONOCYTES % (AUTO) 6 % (2-9); NEUTROPHILS # (AUTO) 7.37 x10^3/uL (1.8-6.8); NEUTROPHILS % (AUTO) 76 % (42-75); PLATELET COUNT 249 x10^3/uL (130-400); RED BLOOD COUNT 4.52 x10^6/uL (3.82-5.3); RED CELL DISTRIBUTION WIDTH 13.3 % (9.6-15.2)
[2020-08-01 05:24] LABS: CALCIUM 7.8 mg/dL (8.5-10.1); CHLORIDE 113 mmol/L (98-107)
[2020-08-01 05:28] LABS: ANION GAP 6 mmol/L (5-15); CREATININE 0.65 mg/dL (0.55-1.02)
[2020-08-01] MEDS ORDERED: LEVOTHYROXINE 50 MCG TABLET PO SCH (06:00)
[2020-08-01] MEDS ORDERED: PANTOPRAZOLE 40 MG IV IVPush SCH (07:30)
[2020-08-01 07:54] VITALS: BP 109/73
[2020-08-01] MEDS: KETOROLAC 30 MG/1 ML IV PRN (08:39)
[2020-08-01] MEDS ORDERED: OXYC5SOL8 PO (08:41)
[2020-08-01] MEDS ORDERED: PRENATAL VIT/IRON/FA 1 EACH TABLET PO SCH (09:00)
[2020-08-01] MEDS: VANCOMYCIN 50 MG/ML ORAL SUSP PO SCH (09:45)
[2020-08-01] MEDS: DOCUSATE 100 MG CAPSULE PO SCH (09:45)
[2020-08-01] MEDS: SODIUM CHLORIDE FLUSH 10ML SYR IVF SCH (09:46)
[2020-08-01] MEDS ORDERED: OXYcodone 5 MG/5 ML ORAL.SOL UDC PO PRN (12:30)
[2020-08-01 12:40] VITALS: BP 102/71
== END 2020-08-01 13:07 | disposition home or self-care (01) ==
LOC: ED 07:33 → EDIP 11:00 → SUATTDRO 12:45 → 4NE 14:49 → DCLOUNGE 08-01 12:54
PROVIDERS: ADMIT Family Medicine; ATTEND Hospitalist
DX: O99.63 Diseases of the digestive system complicating the puerperium (principal); K35.80 Unspecified acute appendicitis; Z20.828 Contact with and (suspected) exposure to other viral communicable diseases; O99.285 Endocrine, nutritional and metabolic diseases complicating the puerperium; E03.9 Hypothyroidism, unspecified; E87.2 Acidosis; E86.0 Dehydration; O99.13 Other diseases of the blood and blood-forming organs and certain disorders involving the immune mechanism complicating the puerperium; D72.829 Elevated white blood cell count, unspecified; O99.89 Other specified diseases and conditions complicating pregnancy, childbirth and the puerperium; R82.81 Pyuria; O34.219 Maternal care for unspecified type scar from previous cesarean delivery; Z88.0 Allergy status to penicillin; Z79.899 Other long term (current) drug therapy; Z86.19 Personal history of other infectious and parasitic diseases; Z37.0 Single live birth; Z86.32 Personal history of gestational diabetes; Z88.9 Allergy status to unspecified drugs, medicaments and biological substances
CPT/HCPCS: 36415; 44970; 74177; 80048; 80053; 81001; 82962; 83605; 83690; 84702; 85025; 85610; 85651; 87086; 87635; 88304; 96361; 96365; 96366; 96372; 96375; 96376; 99285; C9113; G0378; J0171; J0330; J0690; J1885; J2175; J2185; J2210; J2250; J2405; J2704; J3010; J3370; J7030; Q9967; S0020